=== PATIENT | female | born 1950 | race Caucasian/White ===

== ENCOUNTER 2018-06-26 07:48 | Day surgery (SDC) | payer OTHER ==
[2018-06-20 11:30] VITALS: BMI 26.4
[2018-06-26] MEDS ORDERED: PROPOFOL 20 ML ONE ×2 (08:33)
[2018-06-26 09:41] VITALS: TEMP 98
[2018-06-26 10:22] VITALS: BP 136/88; PULSE 79
--- NOTE | 2018-06-27 13:11 | PATH ---
Surgical Pathology Report Patient Name: ERIC ZHAO [facility]. Rec. #: [id number] /Age/Gender: 1950 (Age: 68) / F Account: [id number] Location: [facility] Taken: 06/26/2018 Received: 06/26/2018 Reported: 06/27/2018 Physicians: Liam Conteh M.D. Specimen(s) Received A: SECOND PART OF DUODENUM B: ANTRUM C: GASTRIC POLYPS Clinical History GERD Postoperative diagnosis: Gastritis, gastric polyp, small hiatal hernia Final Diagnosis A. DUODENUM, SECOND PART, BIOPSY: DUODENAL MUCOSA WITHOUT SIGNIFICANT PATHOLOGIC FINDINGS. B. STOMACH, ANTRUM, BIOPSY: GASTRIC ANTRAL MUCOSA WITH MILD CHRONIC FOCAL ACTIVE GASTRITIS. IMMUNOHISTOCHEMICAL STAIN FOR H. PYLORI IS NEGATIVE. C. GASTRIC POLYP, BIOPSY: FUNDIC GLAND POLYP(S). IMMUNOHISTOCHEMICAL STAIN FOR H. PYLORI IS NEGATIVE. Electronically Signed Dot Hart M.D. Gross Description A. Received in formalin, labeled "second part of duodenum" are 5 gonzáles, irregular portions of soft tissue ranging from 0.1-0.3 cm. in greatest dimension. The specimens are submitted in toto in one cassette. B. Received in formalin, labeled "antrum" are 2 gonzáles, irregular portions of soft tissue averaging 0.3 cm. in greatest dimension. The specimens are submitted in toto in one cassette. C. Received in formalin, labeled "gastric polyp" is a gonzáles, polypoid portion of soft tissue measuring 0.8 cm. in greatest dimension. The specimen is submitted in toto in one cassette. 06/26/2018 saudi06/26/2018
== END 2018-06-26 10:41 | disposition home or self-care (01) ==
LOC: FASU-ENDO 07:48
PROVIDERS: ATTEND Internal Medicine Gastroenterology
PROC: 0DB98ZX Excision of Duodenum, Via Natural or Artificial Opening Endoscopic, Diagnostic (ICD-10-PCS; 2018-06-26)
PROC: 0DB68ZX Excision of Stomach, Via Natural or Artificial Opening Endoscopic, Diagnostic (ICD-10-PCS; 2018-06-26)
PROC: 0DB68ZX Excision of Stomach, Via Natural or Artificial Opening Endoscopic, Diagnostic (ICD-10-PCS; principal; 2018-06-26 09:00)
DX: K31.7 Polyp of stomach and duodenum (principal); K29.50 Unspecified chronic gastritis without bleeding; K44.9 Diaphragmatic hernia without obstruction or gangrene; R12 Heartburn
CPT/HCPCS: 88305-TC; 88342-TC